=== PATIENT | female | born 1995 | race African-American/Black ===

== ENCOUNTER 2020-03-11 18:47 | Emergency (ER) | payer BC ==
[~2020-03-11] VITALS: Ht 167.6 cm; Wt 79.4 kg
[2020-03-11 19:30] VITALS: BP_SYST 117
[2020-03-11] MEDS ORDERED: OMEP40CA33 PO (19:40)
--- NOTE | 2020-03-11 21:00 | NUR ---
Pt decided to go home. Patient left without being seen. No further treatment needed. ER MD aware
== END 2020-03-11 23:17 | disposition left against medical advice (07) ==
LOC: SED 18:47
DX: M54.2 Cervicalgia (principal); Z53.21 Procedure and treatment not carried out due to patient leaving prior to being seen by health care provider